=== PATIENT | male | born 1965 | race Caucasian/White ===

== ENCOUNTER 2019-07-15 14:38 | Emergency (ER) | payer SELFPAY ==
[2019-07-15 14:48] VITALS: BP 160/93; PULSE 104; RESP 18; TEMP 36.8; O2SAT 99; BMI 25.8
--- NOTE | 2019-07-15 14:57 | PC.NURSE ---
NOTIFIED RAD OF CT'S
--- NOTE | 2019-07-15 16:03 | PC.NURSE ---
[facility] went in to take pt to [facility] for CT's and pt was not in the room. Yris called out front to see if the patient was out front and they advised that he had walked out. Pt was never seen leaving the ED, but registration seen him leave.
[2019-07-15 16:05] VITALS: BP 160/93; PULSE 104; RESP 18; TEMP 36.8; O2SAT 100
== END 2019-07-15 16:08 | disposition left against medical advice (07) ==
PROVIDERS: Emergency Provider Family Medicine; PCP Family Medicine
DX: Z53.29 Procedure and treatment not carried out because of patient's decision for other reasons (principal); M54.5 Low back pain
CPT/HCPCS: 99281